=== PATIENT | female | born 1950 | race African-American/Black ===

== ENCOUNTER → 2016-08-10 | Outpatient (CLI) | payer MEDICARE ==
[~2016-08-10] VITALS: Ht 167.6 cm; Wt 80.0 kg
[~2016-08-10] MED LIST: CALC-51 PO; CLINT30G TP; CYCL05OE OU; DICL2100G TP; ESTR2TAB PO; FLUT16H NASAL; FLUT1AER PO; LOSA50TA37 PO; MULT1CAP32 PO; OXYC-521 PO; PREG75 PO; PROP10DR5 OU; ROPI2 PO; VITA400T9 PO; VITAD5000 PO; ZOLM2.5T6 PO; [UNRECOGNIZED DRUG - OTHER] PO
[2016-08-10 11:04] VITALS: BP 159/82
== END | disposition home or self-care (01) ==
LOC: SRCNTR 10:50
PROVIDERS: ATTEND Internal Medicine Critical Care Medicine
DX: G47.33 Obstructive sleep apnea (adult) (pediatric) (principal); I27.89 Other specified pulmonary heart diseases; M32.10 Systemic lupus erythematosus, organ or system involvement unspecified; Q24.5 Malformation of coronary vessels; M79.7 Fibromyalgia
CPT/HCPCS: G0463

== ENCOUNTER → 2016-10-10 | Outpatient (CLI) | payer MEDICARE ==
[~2016-10-10] VITALS: Ht 167.6 cm; Wt 81.5 kg
[~2016-10-10] MED LIST changes: -PROP10DR5 OU
[2016-10-10 12:54] VITALS: BP 141/97
== END | disposition home or self-care (01) ==
LOC: SRCNTR 12:23
PROVIDERS: ATTEND Internal Medicine Critical Care Medicine
DX: G47.33 Obstructive sleep apnea (adult) (pediatric) (principal); I27.89 Other specified pulmonary heart diseases; M32.10 Systemic lupus erythematosus, organ or system involvement unspecified; M79.7 Fibromyalgia; Q24.5 Malformation of coronary vessels; I27.2 Other secondary pulmonary hypertension
CPT/HCPCS: G0463

== ENCOUNTER → 2016-12-15 | Outpatient (CLI) | payer MEDICARE ==
[~2016-12-15] VITALS: Ht 167.6 cm; Wt 81.0 kg
[~2016-12-15] MED LIST changes: +GABA-531 PO
[2016-12-15 13:49] VITALS: BP 145/69
== END | disposition home or self-care (01) ==
LOC: SRCNTR 13:06
PROVIDERS: ATTEND Internal Medicine
DX: G47.33 Obstructive sleep apnea (adult) (pediatric) (principal); M32.9 Systemic lupus erythematosus, unspecified; M79.7 Fibromyalgia; J98.8 Other specified respiratory disorders; Z87.09 Personal history of other diseases of the respiratory system
CPT/HCPCS: G0463

== ENCOUNTER → 2017-02-10 | Outpatient (CLI) | payer MEDICARE ==
[~2017-02-10] VITALS: Ht 167.6 cm; Wt 82.0 kg
[~2017-02-10] MED LIST changes: +CALC-1038 PO; -CALC-51 PO; -PREG75 PO
[2017-02-10 13:27] VITALS: BP 142/78
== END | disposition home or self-care (01) ==
LOC: SRCNTR 13:01
PROVIDERS: ATTEND Internal Medicine Critical Care Medicine
DX: G47.33 Obstructive sleep apnea (adult) (pediatric) (principal); I27.89 Other specified pulmonary heart diseases; M32.10 Systemic lupus erythematosus, organ or system involvement unspecified; Q24.5 Malformation of coronary vessels; M79.7 Fibromyalgia
CPT/HCPCS: G0463

== ENCOUNTER → 2017-05-08 | Outpatient (CLI) | payer MEDICARE ==
[~2017-05-08] VITALS: Ht 167.6 cm; Wt 86.5 kg
[2017-05-08 12:23] VITALS: BP 147/86
== END | disposition home or self-care (01) ==
LOC: SRCNTR 12:22
PROVIDERS: ATTEND Internal Medicine Critical Care Medicine
DX: G47.33 Obstructive sleep apnea (adult) (pediatric) (principal); I27.89 Other specified pulmonary heart diseases; M32.10 Systemic lupus erythematosus, organ or system involvement unspecified; Q24.5 Malformation of coronary vessels; M79.7 Fibromyalgia
CPT/HCPCS: G0463

== ENCOUNTER 2017-07-24 09:40 | Day surgery (SDC) | payer MEDICARE ==
[~2017-07-24] VITALS: Ht 168.9 cm; Wt 85.5 kg
[~2017-07-24 09:40] MED LIST changes: +RINGERS SOLUTION,LACTATED 1,000 ML IV ONE
[2017-07-24] MEDS ORDERED: ROCURONIUM BROMIDE 10 MG/ML 5 ML VIAL IVP ONE (09:41)
[2017-07-24] MEDS ORDERED: LIDOCAINE HCL/PF 2% 5 ML VIAL IM ONE (09:41)
[2017-07-24] MEDS ORDERED: ONDANSETRON HCL 4 MG/2 ML VIAL IVP ONE (09:41)
[2017-07-24] MEDS ORDERED: GLUCAGON,HUMAN RECOMBINANT 1 MG VIAL IVP ONE (09:41)
[2017-07-24] MEDS ORDERED: FentaNYL CITRATE-PF 100 MCG/2 ML VIAL IVP ONE (09:41)
[2017-07-24] MEDS ORDERED: HYDROmorphone 2 MG/ML SYRINGE IVP ONE (09:41)
[2017-07-24] MEDS ORDERED: PROPOFOL 1% 20 ML VIAL IVP ONE (09:41)
[2017-07-24] MEDS ORDERED: DEXAMETHASONE SOD PHOS 4 MG/ML VIAL IVP ONE (09:41)
[2017-07-24] MEDS ORDERED: MIDAZOLAM HCL 2 MG/2 ML VIAL IVP ONE (09:41)
[2017-07-24] MEDS ORDERED: 0.9% SODIUM CHLORIDE 10 ML VIAL IVP ONE (09:41)
[2017-07-24] MEDS ORDERED: NEOSTIGMINE METHYLSULFATE 1 MG/ML 10 ML VIAL IVP ONE (09:41)
[2017-07-24] MEDS ORDERED: RINGERS SOLUTION,LACTATED 1,000 ML IV ONE ×2 (10:00→12:52)
[2017-07-24 10:34] LABS: BASOPHILS % (AUTO) 0.4 % (0.0-2.0); EOSINOPHILS % (AUTO) 0.7 % (1.0-6.0); HEMATOCRIT 35.6 % (36-46); HEMOGLOBIN 11.7 g/dL (12.0-16.0); LYMPHOCYTES # (AUTO) 1.3 K/uL (1.0-4.8); LYMPHOCYTES % (AUTO) 24.8 % (22.0-44.0); MEAN CORPUSCULAR HEMOGLOBIN 31.4 pg (26.0-34.0); MEAN CORPUSCULAR HGB CONC 32.8 G/dL (31.0-37.0); MEAN CORPUSCULAR VOLUME 96 fL (80-100); MONOCYTES # (AUTO) 0.7 K/uL (0.1-1.0); MONOCYTES % (AUTO) 12.9 % (2.0-9.0); NEUTROPHILS # (AUTO) 3.2 K/uL (1.8-7.7); NEUTROPHILS % (AUTO) 61.2 % (40.0-70.0); PLATELET COUNT (AUTO) 199 K/uL (150-450); RED BLOOD CELL COUNT(AUTO) 3.73 MIL/uL (4.00-5.20); RED CELL DISTRIBUTION WIDTH 13.3 % (11.5-14.5)
[2017-07-24 10:40] LABS: ANION GAP 7 mmol/L (8-16); CALCIUM, TOTAL 9.1 mg/dL (8.8-10.5); CARBON DIOXIDE 29 mmol/L (22-29); CHLORIDE 102 mmol/L (98-107); CREATININE 1.08 mg/dL (0.60-1.30); GLOMERULAR FILTR. RATE CALC > 60 mL/min (>60); GLUCOSE,RANDOM 91 mg/dL (70-110); POTASSIUM 4.2 mmol/L (3.5-5.1); SODIUM SERUM 138 mmol/L (136-145); UREA NITROGEN, BLOOD 22 mg/dL (7-18)
[2017-07-24 10:47] LABS: ALANINE AMINOTRANSFERASE 33 U/L (12-78); ALBUMIN 3.2 g/dL (3.4-5.0); ALKALINE PHOSPHATASE 87 U/L (46-116); ASPARTATE AMINOTRANSFERASE 21 U/L (15-37); BILIRUBIN,TOTAL 0.8 mg/dL (0.1-1.0); TOTAL PROTEIN, SERUM 7.3 g/dL (6.4-8.2)
[2017-07-24] MEDS ORDERED: BUPIVACAINE/EPI/PF 0.5% 30 ML VIAL ONE ×2 (11:29)
[2017-07-24] MEDS ORDERED: HYDROmorphone 2 MG/ML SYRINGE IVP PRN (12:45)
[2017-07-24] MEDS ORDERED: MEPERIDINE-PF 25 MG/ML SYRINGE IVP PRN (12:45)
[2017-07-24] MEDS ORDERED: FentaNYL CITRATE-PF 100 MCG/2 ML VIAL IVP PRN (12:45)
[2017-07-24] MEDS ORDERED: GUM MASTIC/STORAX/MSAL/ALCOHOL LIQUID 0.67 ML VIAL TP ONE (14:59)
[2017-07-24] MEDS ORDERED: LABETALOL HCL 5 MG/ML 20 ML VIAL IVP PRN (15:30)
[2017-07-24] MEDS ORDERED: LABETALOL HCL 5 MG/ML 20 ML VIAL IVP ONE (15:33)
[2017-07-24] MEDS ORDERED: MEPERIDINE-PF 25 MG/ML SYRINGE ONE (15:58)
[2017-07-24] MEDS ORDERED: OXYGEN THERAPY IH SCH (20:00)
== END 2017-07-24 17:20 | disposition home or self-care (01) ==
LOC: SURGERY 09:40
PROVIDERS: ATTEND Surgery Plastic and Reconstructive Surgery
DX: N64.81 Ptosis of breast (principal); N64.89 Other specified disorders of breast; I10 Essential (primary) hypertension; M32.9 Systemic lupus erythematosus, unspecified; M79.7 Fibromyalgia; J45.909 Unspecified asthma, uncomplicated; Z88.0 Allergy status to penicillin; Z79.82 Long term (current) use of aspirin; Z72.89 Other problems related to lifestyle; Z98.82 Breast implant status; Z90.710 Acquired absence of both cervix and uterus; Z91.018 Allergy to other foods; Z79.899 Other long term (current) drug therapy
CPT/HCPCS: 19316; 36415; 80053; 85025; 93005; J1100; J1170; J1610; J2175; J2250; J2405; J2704; J3010; J3490 ×3; J7120

== ENCOUNTER → 2017-09-25 | Outpatient (CLI) | payer MEDICARE ==
[~2017-09-25] VITALS: Ht 167.6 cm; Wt 90.5 kg
[~2017-09-25] MED LIST changes: -RINGERS SOLUTION,LACTATED 1,000 ML IV ONE
[2017-09-25 12:27] VITALS: BP 147/72
== END | disposition home or self-care (01) ==
LOC: SRCNTR 12:22
PROVIDERS: ATTEND Internal Medicine Critical Care Medicine
DX: I27.89 Other specified pulmonary heart diseases (principal); M32.9 Systemic lupus erythematosus, unspecified; K58.9 Irritable bowel syndrome, unspecified; M79.7 Fibromyalgia; G47.33 Obstructive sleep apnea (adult) (pediatric); Q24.5 Malformation of coronary vessels
CPT/HCPCS: G0463

== ENCOUNTER → 2017-12-14 | Outpatient (CLI) | payer MEDICARE ==
[~2017-12-14] VITALS: Ht 167.6 cm; Wt 89.0 kg
[2017-12-14 12:10] VITALS: BP 165/73
== END | disposition home or self-care (01) ==
LOC: SRCNTR 11:56
PROVIDERS: ATTEND Internal Medicine Critical Care Medicine
DX: G47.33 Obstructive sleep apnea (adult) (pediatric) (principal); I27.89 Other specified pulmonary heart diseases; M32.10 Systemic lupus erythematosus, organ or system involvement unspecified; Q24.5 Malformation of coronary vessels; M79.7 Fibromyalgia; M35.00 Sjogren syndrome, unspecified
CPT/HCPCS: G0463

== ENCOUNTER → 2018-02-14 | Outpatient (CLI) | payer MEDICARE ==
[~2018-02-14] VITALS: Ht 167.6 cm; Wt 91.0 kg
[~2018-02-14] MED LIST changes: +LOSA50TA25 PO; -LOSA50TA37 PO
[2018-02-14 15:00] VITALS: BP 182/81
== END | disposition home or self-care (01) ==
LOC: SRCNTR 14:53
PROVIDERS: ATTEND Internal Medicine Critical Care Medicine
DX: G47.33 Obstructive sleep apnea (adult) (pediatric) (principal); I27.89 Other specified pulmonary heart diseases; M32.10 Systemic lupus erythematosus, organ or system involvement unspecified; Q24.5 Malformation of coronary vessels; M79.7 Fibromyalgia; M35.00 Sjogren syndrome, unspecified
CPT/HCPCS: G0463

== ENCOUNTER → 2018-04-26 | Outpatient (CLI) | payer MEDICARE ==
[~2018-04-26] VITALS: Ht 167.6 cm; Wt 92.0 kg
[2018-04-26 13:52] VITALS: BP 143/72
== END | disposition home or self-care (01) ==
LOC: SRCNTR 13:34
PROVIDERS: ATTEND Internal Medicine Critical Care Medicine
DX: G47.33 Obstructive sleep apnea (adult) (pediatric) (principal); I27.89 Other specified pulmonary heart diseases; M32.10 Systemic lupus erythematosus, organ or system involvement unspecified; Q24.5 Malformation of coronary vessels; M79.7 Fibromyalgia; M35.00 Sjogren syndrome, unspecified
CPT/HCPCS: G0463

== ENCOUNTER → 2019-04-01 | Outpatient (CLI) | payer MEDICARE ==
[~2019-04-01] VITALS: Ht 167.6 cm; Wt 93.0 kg
[~2019-04-01] MED LIST changes: -LOSA50TA25 PO; +LOSA50TA64 PO
[2019-04-01 11:53] VITALS: BP 142/79
== END | disposition home or self-care (01) ==
LOC: SRCNTR 11:51
PROVIDERS: ATTEND Internal Medicine Critical Care Medicine
DX: G47.33 Obstructive sleep apnea (adult) (pediatric) (principal); I27.89 Other specified pulmonary heart diseases; M32.10 Systemic lupus erythematosus, organ or system involvement unspecified; Q24.5 Malformation of coronary vessels; M79.7 Fibromyalgia; M35.00 Sjogren syndrome, unspecified; I10 Essential (primary) hypertension; Z98.890 Other specified postprocedural states; Z90.49 Acquired absence of other specified parts of digestive tract; Z79.891 Long term (current) use of opiate analgesic; Z79.899 Other long term (current) drug therapy
CPT/HCPCS: G0463

== ENCOUNTER → 2019-06-12 | Outpatient (CLI) | payer MEDICARE ==
[~2019-06-12] VITALS: Ht 167.6 cm; Wt 93.0 kg
[~2019-06-12] MED LIST changes: +LOSA-88 PO; -LOSA50TA64 PO
[2019-06-12 10:36] VITALS: BP 123/63
== END | disposition home or self-care (01) ==
LOC: SRCNTR 10:34
PROVIDERS: ATTEND Internal Medicine Critical Care Medicine
DX: G47.33 Obstructive sleep apnea (adult) (pediatric) (principal); I27.89 Other specified pulmonary heart diseases; M32.10 Systemic lupus erythematosus, organ or system involvement unspecified; Q24.5 Malformation of coronary vessels; M79.7 Fibromyalgia; M35.00 Sjogren syndrome, unspecified; E04.2 Nontoxic multinodular goiter; I27.20 Pulmonary hypertension, unspecified; L65.9 Nonscarring hair loss, unspecified; Z79.891 Long term (current) use of opiate analgesic; Z79.899 Other long term (current) drug therapy; Z88.6 Allergy status to analgesic agent; Z90.49 Acquired absence of other specified parts of digestive tract; Z96.653 Presence of artificial knee joint, bilateral; Z98.890 Other specified postprocedural states
CPT/HCPCS: G0463

== ENCOUNTER → 2020-11-16 | Outpatient (CLI) | payer MEDICARE ==
[~2020-11-16] VITALS: Ht 167.6 cm; Wt 99.3 kg
[~2020-11-16] MED LIST changes: +GABA-1181 PO; -GABA-531 PO; -LOSA-88 PO; +LOSA50TA37 PO; -OXYC-521 PO; +OXYC-617 PO; +PRED10 PO; -ROPI2 PO; +ROPI2TAB26 PO
[2020-11-16 10:21] VITALS: BP 111/62
== END | disposition home or self-care (01) ==
LOC: SRCNTR 10:03
PROVIDERS: ATTEND Internal Medicine Critical Care Medicine
DX: I27.89 Other specified pulmonary heart diseases (principal); G47.33 Obstructive sleep apnea (adult) (pediatric); M32.10 Systemic lupus erythematosus, organ or system involvement unspecified; Q24.5 Malformation of coronary vessels; M79.7 Fibromyalgia; E04.2 Nontoxic multinodular goiter; M35.00 Sjogren syndrome, unspecified
CPT/HCPCS: G0463; Z7500

== ENCOUNTER → 2020-11-19 | Outpatient (CLI) | payer MEDICARE | END | disposition home or self-care (01) | LOC: RADPV 12:10 | PROVIDERS: ATTEND Internal Medicine Critical Care Medicine | DX: K11.0 Atrophy of salivary gland (principal); I27.23 Pulmonary hypertension due to lung diseases and hypoxia | CPT/HCPCS: 70490; 71250 ==

== ENCOUNTER → 2021-02-17 | Outpatient (CLI) | payer MEDICARE ==
[~2021-02-17] VITALS: Ht 168.9 cm; Wt 103.9 kg
[~2021-02-17] MED LIST changes: +DICL100G59 TP; -DICL2100G TP
[2021-02-17 11:41] VITALS: BP 125/69
== END | disposition home or self-care (01) ==
LOC: SRCNTR 11:19
PROVIDERS: ATTEND Internal Medicine Critical Care Medicine
DX: G47.33 Obstructive sleep apnea (adult) (pediatric) (principal); I27.89 Other specified pulmonary heart diseases; M32.10 Systemic lupus erythematosus, organ or system involvement unspecified; M79.7 Fibromyalgia; E04.2 Nontoxic multinodular goiter; Q24.5 Malformation of coronary vessels; M35.00 Sjogren syndrome, unspecified
CPT/HCPCS: G0463